=== PATIENT | male | born 1935 | race Caucasian/White ===

== ENCOUNTER 2021-11-06 08:08 | Outpatient (CLI) | payer MEDICARE ==
[2021-11-06] VITALS (21 sets, daily range): BP systolic 61–152; BP diastolic 39–105
== END 2021-11-06 23:59 | disposition home or self-care (01) ==
LOC: CARD DIAG 08:08
PROVIDERS: ATTEND Internal Medicine Cardiovascular Disease
DX: R55 Syncope and collapse (principal)
CPT/HCPCS: 93660

== ENCOUNTER 2022-01-23 08:51 | Day surgery (SDC) | payer MEDICARE ==
[~2022-01-23] VITALS: Ht 180.3 cm; Wt 78.6 kg
[2022-01-23] VITALS (11 sets, daily range): BP systolic 94–130; BP diastolic 45–76
[2022-01-23 10:02] LABS: BASOPHILS % (AUTO) 0.3 % (0-1); EOSINOPHILS # (AUTO) 0.1 X10'3 (0-0.9); EOSINOPHILS % (AUTO) 1.4 % (0-6); HEMATOCRIT 41.4 % (42.0-52.0); HEMOGLOBIN 13.7 g/dl (14.0-17.9); LYMPHOCYTES # (AUTO) 0.6 X10'3 (1.1-4.8); LYMPHOCYTES % (AUTO) 10.5 % (21-51); MEAN CORPUSCULAR VOLUME 90.7 FL (78-98); MEAN PLATELET VOLUME 8.8 FL (7.4-10.4); MONOCYTES # (AUTO) 0.4 X10'3 (0-0.9); MONOCYTES % (AUTO) 7.8 % (2-12); NEUTROPHILS # (AUTO) 4.5 X10'3 (1.8-7.7); PLATELET COUNT 129 X10'3 (140-440); RED BLOOD COUNT 4.56 X10'6 (4.70-6.10); RED CELL DISTRIBUTION WIDTH 13.6 % (11.5-14.5); WHITE BLOOD COUNT 5.6 X10'3 (4.5-11.0)
[2022-01-23 10:11] LABS: APTT 33 SECONDS (22-32)
[2022-01-23 10:12] LABS: ALBUMIN 4.4 G/DL (3.4-5.0); ANION GAP 8 (8-16); BLOOD UREA NITROGEN 21 MG/DL (7-18); BUN/CREATININE RATIO 18.8 (5.4-32.0); CALCIUM 9.5 MG/DL (8.5-10.1); CHLORIDE 104 MMOL/L (99-107); CREATININE 1.12 MG/DL (0.60-1.10); GLUCOSE 125 MG/DL (70-104); POTASSIUM 4.1 MMOL/L (3.5-5.1); SODIUM 141 MMOL/L (135-145); TOTAL CARBON DIOXIDE 28.7 MMOL/L (24-32); eGFR 62 ML/MIN
[2022-01-23] MEDS ORDERED: ATOR40TA72 PO (10:21)
[2022-01-23] MEDS ORDERED: LOSA25TA96 PO (10:21)
[2022-01-23] MEDS ORDERED: HYDR12.55 PO (10:22)
[2022-01-23] MEDS ORDERED: ASPI-611 PO (10:22)
[2022-01-23] MEDS ORDERED: GABA600T13 PO (10:23)
[2022-01-23] MEDS ORDERED: LEVO25TA7 PO (10:23)
[2022-01-23] MEDS ORDERED: Vitamin D3 PO (10:24)
[2022-01-23] MEDS ORDERED: diphenhydrAMINE 25mg capsule PO ONE (10:45)
[2022-01-23] MEDS ORDERED: LORazepam 0.5 MG tablet PO ONE (10:45)
[2022-01-23] MEDS ORDERED: midazolam 1 mg/ML 2ml injection ONE (11:59)
[2022-01-23] MEDS ORDERED: fentaNYL/PF 50MCG/1 ML 2ML syringe ONE (11:59)
[2022-01-23] MEDS ORDERED: verapamil 2.5 mg/ml inj IV ONE (11:59)
[2022-01-23] MEDS ORDERED: nitroGLYCERIN-Tridil 50MG/D5W 250 ML IV ONE (12:00)
[2022-01-23] MEDS ORDERED: LIDOcaine 1% (10mg/ml) 2ml vial ONE ×2 (12:00→12:05)
[2022-01-23] MEDS ORDERED: heparin 1,000unit/ml 10ml vial 10 ML ONE (12:00)
[2022-01-23] MEDS ORDERED: iohexol 350MG/ML 100ml bottle IV ONE (12:00)
[2022-01-23] MEDS ORDERED: iohexol 350 MG/ML 50ML vial IV ONE (12:05)
--- NOTE | 2022-01-23 13:00 | NUR ---
Bedside report received from MICHEL Guillen. Vital signs stable. NSR/SB on monitor. Right radial stable with vasc band in place.
[2022-01-23] MEDS ORDERED: normal saline 1000ml 1,000 ML IV SCH (13:20)
== END 2022-01-23 18:00 | disposition home or self-care (01) ==
LOC: SSTAY O 08:51
PROVIDERS: ATTEND Internal Medicine Cardiovascular Disease
DX: R94.39 Abnormal result of other cardiovascular function study (principal); I25.10 Atherosclerotic heart disease of native coronary artery without angina pectoris; I10 Essential (primary) hypertension; I49.5 Sick sinus syndrome; E78.5 Hyperlipidemia, unspecified; E11.40 Type 2 diabetes mellitus with diabetic neuropathy, unspecified; Z95.1 Presence of aortocoronary bypass graft; Z98.890 Other specified postprocedural states; Z79.899 Other long term (current) drug therapy; Z79.01 Long term (current) use of anticoagulants
CPT/HCPCS: 36415; 76937; 80048; 82948; 85025; 85610; 85730; 93005; 93458; A6258; C1769; C1894; J1644; J2250; J3010; J3490; J7030; Q0163; Q9967; 99152; 99153; A4620; A6402; C1725

== ENCOUNTER 2022-05-19 06:13 | Day surgery (SDC) | payer MEDICARE ==
[2022-05-18 13:05] LABS: ALBUMIN 4.6 G/DL (3.4-5.0); ANION GAP 2 (8-16); BLOOD UREA NITROGEN 22 MG/DL (7-18); BUN/CREATININE RATIO 19.8 (5.4-32.0); CALCIUM 9.4 MG/DL (8.5-10.1); CHLORIDE 103 MMOL/L (99-107); CREATININE 1.11 MG/DL (0.60-1.10); GLUCOSE 115 MG/DL (70-104); POTASSIUM 4.2 MMOL/L (3.5-5.1); SODIUM 141 MMOL/L (135-145); eGFR 63 ML/MIN
[2022-05-19] VITALS (11 sets, daily range): BP systolic 108–134; BP diastolic 62–81
[~2022-05-19] VITALS: Ht 177.8 cm; Wt 80.1 kg
[~2022-05-19 06:13] MED LIST: ASPI-611 PO; ATOR40TA72 PO; GABA600T13 PO; HYDR12.55 PO; LEVO25TA7 PO; LIDOCAINE 2%/EPI 1:100,000 inj. Multi-dose 20 ML VIAL ONE; LOSA25TA96 PO; Vitamin D3 PO; fentaNYL/PF 50MCG/1 ML 2ML syringe ONE; iohexol 350 MG/ML 50ML vial IV ONE; midazolam 1 mg/ML 2ml injection ONE
[2022-05-19] MEDS ORDERED: cefazolin 2gm/D5W 100mL 100 ML IV ONE (06:30)
[2022-05-19 07:08] LABS: BASOPHILS % (AUTO) 0.5 % (0-1); EOSINOPHILS # (AUTO) 0.2 X10'3 (0-0.9); EOSINOPHILS % (AUTO) 2.7 % (0-6); HEMATOCRIT 39.5 % (42.0-52.0); HEMOGLOBIN 13.2 g/dl (14.0-17.9); LYMPHOCYTES # (AUTO) 1.1 X10'3 (1.1-4.8); LYMPHOCYTES % (AUTO) 19.5 % (21-51); MEAN CORPUSCULAR HEMOGLOBIN 30.3 PG (27.0-31.0); MEAN CORPUSCULAR HGB CONC 33.4 g/dL (33.0-36.5); MEAN CORPUSCULAR VOLUME 90.7 FL (78-98); MEAN PLATELET VOLUME 8.6 FL (7.4-10.4); MONOCYTES # (AUTO) 0.6 X10'3 (0-0.9); MONOCYTES % (AUTO) 10.1 % (2-12); NEUTROPHILS # (AUTO) 3.8 X10'3 (1.8-7.7); NEUTROPHILS % (AUTO) 67.2 % (42-75); PLATELET COUNT 122 X10'3 (140-440); RED BLOOD COUNT 4.35 X10'6 (4.70-6.10); RED CELL DISTRIBUTION WIDTH 13.5 % (11.5-14.5); WHITE BLOOD COUNT 5.7 X10'3 (4.5-11.0)
[2022-05-19] MEDS ORDERED: ceFAZolin 1000mg inj ONE (07:52)
[2022-05-19] MEDS ORDERED: LIDOCAINE 2%/EPI 1:100,000 inj. Multi-dose 20 ML VIAL ONE (07:52)
[2022-05-19] MEDS ORDERED: fentaNYL/PF 50MCG/1 ML 2ML syringe ONE (07:52)
[2022-05-19] MEDS ORDERED: midazolam 1 mg/ML 2ml injection ONE (07:52)
[2022-05-19] MEDS ORDERED: vancomycin/NS 1 GM ADD-VANTAGE 250 ML X 1 DOSE IV ONE (09:55)
--- NOTE | 2022-05-19 10:00 | NUR ---
Pt sitting up in bed eating sandwich and drinking coffee.
--- NOTE | 2022-05-19 11:05 | NUR ---
Pt amb to restroom, void in toilet, gait steady. Pt in WC, transferred to X-Ray for CXR.
--- NOTE | 2022-05-19 11:20 | NUR ---
Pt returned from X-Ray, stable. Pt sitting up in bed eating breakfast burrito.
== END 2022-05-19 15:00 | disposition home or self-care (01) ==
LOC: SSTAY O 06:13
PROVIDERS: ATTEND Internal Medicine Cardiovascular Disease
DX: I49.5 Sick sinus syndrome (principal); E11.40 Type 2 diabetes mellitus with diabetic neuropathy, unspecified; I10 Essential (primary) hypertension; E78.5 Hyperlipidemia, unspecified; N40.0 Benign prostatic hyperplasia without lower urinary tract symptoms; I25.10 Atherosclerotic heart disease of native coronary artery without angina pectoris; Z98.890 Other specified postprocedural states; Z79.82 Long term (current) use of aspirin; Z79.899 Other long term (current) drug therapy; Z72.89 Other problems related to lifestyle; Z87.891 Personal history of nicotine dependence; Z82.49 Family history of ischemic heart disease and other diseases of the circulatory system
CPT/HCPCS: 33208; 36415; 71046; 80048; 85025; 85610; 93005; 99152; 99153; C1785; C1894; C1898; J0690; J2250; J3010; J3370; J7030; Q9967